=== PATIENT | female | born 1940 | race Caucasian/White ===

== ENCOUNTER 2017-01-28 13:59 | Emergency (ER) | payer OTHER ==
[~2017-01-28] VITALS: Ht 157.5 cm; Wt 67.1 kg
[2017-01-28 14:00] VITALS: BP_SYST 128
--- NOTE | 2017-01-28 14:00 | NUR ---
Patient to ER bed 02 to gown for evaluation. Side rails up. Report given to MATEO Hernandez.
--- NOTE | 2017-01-28 14:04 | NUR ---
Pt brought by family members, A&Ox4, per pt urinary catheter has been leaking, current output 50 cc, pt had recent mitral valve surgery,respirations even and unlabored, pt denies pain, skin pink and warm, cap refill <3.
--- NOTE | 2017-01-28 14:05 | NUR ---
Dr Mccann at bedside examining patient
--- NOTE | 2017-01-28 14:45 | NUR ---
16# FR Cruz catheter with use of sterile technique. Immediate return of 700 cc urine noted. Bedside drainage bag placed below level of bladder. Urine sample collected and sent to lab. Pt tolerated procedure . Patient arrived with cruz in place, changed due to standard of practice prior to admission. Patient unable to toilet self.
[2017-01-28 15:00] LABS: BILIRUBIN,URINE NEGATIVE (NEGATIVE); BLOOD, URINE NEGATIVE (NEGATIVE); CLARITY/URINE CLEAR (CLEAR); COLOR,URINE YELLOW (YELLOW); GLUCOSE,URINE NEGATIVE (NEGATIVE); KETONES,URINE NEGATIVE (NEGATIVE); LEUKOCYTE ESTERASE ,URINE NEGATIVE (NEGATIVE); NITRITE, URINE NEGATIVE (NEGATIVE); PROTEIN URINE NEGATIVE (NEGATIVE); UROBILINOGEN,URINE 0.2 (0.2-1.0)
[2017-01-28 15:47] VITALS: BP_SYST 113
--- NOTE | 2017-01-28 15:47 | NUR ---
Patient given written and verbal discharge instructions and verbalizes understanding. ER MD Mccann discussed with patient the results and treatment provided. Patient in stable condition. ID arm band removed. Patient educated on pain management and to follow up with PMD. Pain Scale 0/10. Opportunity for questions provided and answered.
== END 2017-01-28 15:47 | disposition home or self-care (01) ==
LOC: SED 13:59
DX: T83.011A Breakdown (mechanical) of indwelling urethral catheter, initial encounter (principal); I10 Essential (primary) hypertension; Z46.6 Encounter for fitting and adjustment of urinary device; Z86.79 Personal history of other diseases of the circulatory system
CPT/HCPCS: 81003; 99284

== ENCOUNTER 2017-02-26 10:04 | Emergency (ER) | payer OTHER ==
[~2017-02-26] VITALS: Ht 157.5 cm; Wt 56.7 kg
[2017-02-26] MEDS ORDERED: NACL 0.9% 1,000 ML IV SCH (10:39)
[2017-02-26 10:51] VITALS: BP_SYST 96
--- NOTE | 2017-02-26 10:56 | NUR ---
Patient triaged and placed in waiting room. VSS and patient appears in no acute distress at this time. Accompanied by SISTER, awaiting available bed, and MD notified of need for MSE.
--- NOTE | 2017-02-26 10:56 | NUR ---
LAB IN TRIAGE FOR BLOOD DRAW
[2017-02-26 11:16] LABS: INR 1.7 (0.8-1.2); PROTHROMBIN TIME 18.3 SECS (9.5-12.5)
[2017-02-26 11:18] LABS: ANION GAP 4 (5-15); CALCIUM 8.2 mg/dL (8.4-11.0); CHLORIDE 98 mmol/L (98-107); CREATININE 0.77 mg/dL (0.55-1.30); GLUCOSE 127 mg/dL (70-99); POTASSIUM 3.1 mmol/L (3.5-5.1); SODIUM SERUM 129 mmol/L (136-145); UREA NITROGEN, BLOOD 10 mg/dL (8-21)
[2017-02-26 11:21] LABS: HEMATOCRIT 36.8 % (36-48); HEMOGLOBIN 12.7 g/dL (12.0-16.0); MEAN CORPUSCULAR HEMOGLOBIN 30 pg (27-31); MEAN CORPUSCULAR HGB CONC 35 % (32-36); MEAN CORPUSCULAR VOLUME 87 fL (79.0-98.0); PLATELET COUNT (AUTO) 323 K/uL (130-430); RED BLOOD CELL COUNT(AUTO) 4.22 MIL/uL (4.2-6.2); RED CELL DISTRIBUTION WIDTH 13.8 % (9.0-15.0); WHITE BLOOD COUNT (AUTO) 7.9 K/uL (4.8-10.8)
[2017-02-26 11:22] LABS: ALANINE AMINOTRANSFERASE 19 U/L (12-78); ALBUMIN 3.1 g/dL (3.4-4.8); ASPARTATE AMINOTRANSFERASE 23 U/L (10-37); TOTAL BILIRUBIN 0.6 mg/dL (0.0-1.0); TOTAL PROTEIN, SERUM 6.8 g/dL (6.4-8.3)
[2017-02-26 11:40] LABS: BASOPHILS % (MANUAL) 0 % (0-2); EOSINOPHILS % (MANUAL) 0 % (0-7); LYMPHOCYTES % (MANUAL) 25 % (20-46); MONOCYTES % (MANUAL) 5 % (0-11)
[2017-02-26 12:19] LABS: BILIRUBIN,URINE NEGATIVE (NEGATIVE); CLARITY/URINE CLEAR (CLEAR); COLOR,URINE YELLOW (YELLOW); GLUCOSE,URINE NEGATIVE (NEGATIVE); KETONES,URINE NEGATIVE (NEGATIVE); LEUKOCYTE ESTERASE ,URINE NEGATIVE (NEGATIVE); NITRITE, URINE NEGATIVE (NEGATIVE); PH,URINE 6.5 (5.0-8.0); PROTEIN URINE 1+ (NEGATIVE); UROBILINOGEN,URINE 0.2 (0.2-1.0)
--- NOTE | 2017-02-26 12:24 | NUR ---
ER at bedside examining patient.
--- NOTE | 2017-02-26 12:24 | NUR ---
Patient to ER bed 07 to gown for evaluation. Side rails up.
[2017-02-26 12:26] LABS: BLOOD, URINE TRACE (NEGATIVE)
[2017-02-26 12:33] LABS: BACTERIA,URINE FEW /HPF (None Seen); RBC,URINE 0-3 /HPF (0-3)
[2017-02-26] MEDS ORDERED: LOPERAMIDE HCL 2 MG CAPSULE PO ONE (12:45)
--- NOTE | 2017-02-26 12:47 | NUR ---
had open heart surgery on January 05,developed C-diff and UTI in the hospital ,received Abx. had diarrhea for 5 weeks. diarrhea started again since this Monday. denies blood in stool, denies pain with urination, denies abdominal pain and nausea,vomiting. pt is awake,alert,oriented x4.skin warm,dry intact.
--- NOTE | 2017-02-26 13:01 | NUR ---
# 20 gauge angiocath placed to RFA. Use of asceptic technique. Opsite placed over site. Blood return noted. Blood for lab drawn from site. Flushed with 10 cc of normal saline. No evidence of infiltration noted. Patient tolerated well.
[2017-02-26] MEDS ORDERED: POTASSIUM CHLORIDE 20 MEQ TAB.PRT.SR PO ONE (13:30)
--- NOTE | 2017-02-26 14:09 | NUR ---
Patient given written and verbal discharge instructions and verbalizes understanding. ER MD discussed with patient the results and treatment provided. Patient in stable condition. ID arm band removed. IV catheter removed intact and dressing applied, no active bleeding. Rx of x1 immodium given. Patient educated on pain management and to follow up with PMD. Pain Scale 0/10. Opportunity for questions provided and answered.
[2017-02-26 14:11] VITALS: BP_SYST 96
== END 2017-02-26 14:09 | disposition home or self-care (01) ==
LOC: SED 10:04
DX: E87.6 Hypokalemia (principal); R19.7 Diarrhea, unspecified; I10 Essential (primary) hypertension; E03.9 Hypothyroidism, unspecified; Z85.41 Personal history of malignant neoplasm of cervix uteri; Z90.710 Acquired absence of both cervix and uterus
CPT/HCPCS: 36415; 71010; 80053; 81000; 83605; 84484; 85007; 85027; 85610; 85730; 87040; 93005; 96360; 99285; J7030